=== PATIENT | female | born 1970 | race Caucasian/White ===

== ENCOUNTER → 2018-06-29 | Outpatient (CLI) | payer OTHER | LOC: LAB.O 08:45 | PROVIDERS: ATTEND Nurse Practitioner Family | DX: Z00.00 Encounter for general adult medical examination without abnormal findings (principal) ==

== ENCOUNTER → 2018-07-28 | Outpatient (CLI) | payer OTHER | LOC: YCFC.O 08:56 | PROVIDERS: ATTEND Nurse Practitioner Family | DX: E03.9 Hypothyroidism, unspecified (principal) ==

== ENCOUNTER → 2018-08-28 | Outpatient (CLI) | payer OTHER | LOC: LAB.O 12:15 | PROVIDERS: ATTEND Nurse Practitioner Family | DX: E03.9 Hypothyroidism, unspecified (principal) ==

== ENCOUNTER → 2019-08-28 | Outpatient (CLI) | payer OTHER | LOC: LAB.O 12:05 | PROVIDERS: ATTEND Family Medicine | DX: E03.9 Hypothyroidism, unspecified (principal); D64.9 Anemia, unspecified ==

== ENCOUNTER → 2020-03-18 | Outpatient (CLI) | payer OTHER | LOC: YCFC.O 14:46 | PROVIDERS: ATTEND Family Medicine | DX: R19.7 Diarrhea, unspecified (principal) ==

== ENCOUNTER → 2020-08-01 | Outpatient (CLI) | payer OTHER | LOC: YCFC.O 07:16 | PROVIDERS: ATTEND Nurse Practitioner Family | DX: Z13.220 Encounter for screening for lipoid disorders (principal); D64.9 Anemia, unspecified; E03.9 Hypothyroidism, unspecified ==